=== PATIENT | male | born 1985 | race Caucasian/White ===

== ENCOUNTER 2024-11-10 07:51 | Emergency (ER) | payer MEDICARE, SELFPAY ==
[2024-11-10 07:53] VITALS: BP 145/111
[2024-11-10 09:25] VITALS: BMI 26.6
[2024-11-10 10:01] VITALS: BP 134/83
--- NOTE | 2024-11-10 10:01 | ED.GENMED ---
History of Present Illness
General
Chief Complaint: Skin Problem
Source: patient
Exam Limitations: none
Time Seen by Provider: 11/10/24 09:17
Nursing documentation reviewed up to this point in time: agreed with
History of Present Illness
History of Present Illness:
39-year-old male without significant past medical history presenting to the emergency department today with concerns of swelling to his bilateral wrists. Claims it is similar issues in the past when he had an abscess. He had some Keflex from
previous infection and has been taking that over the last 24 hours. Denies any significant improvement. Denies any fevers or systemic symptoms nausea vomiting. Pain is mild. There has been spontaneous drainage from the small abscess to the left
wrist.
Review of Systems
Review of Systems
Allergies reviewed?: Yes
All Other Systems: ROS reviewed and negative except as documented in HPI and ROS
Phy Exam
Physical Exam
Physical Exam:
GENERAL: Alert , in no apparent distress
EYE: pupils equal and reactive
NECK: Supple, no significant adenopathy.
ENT: o/p clr, mmm.
CARDIAC: Regular rate and rhythm .
LUNGS: Clear breath sounds bilaterally, no acute respiratory distress, no wheezes/rales/rhonchi
ABDOMEN: Soft, without focal tenderness, no r/g, no cvat
NEUROLOGICAL: Alert and oriented, no focal neuro deficits
SKIN: Area of redness swelling warmth tenderness palpation 2.5 cm in diameter with area of central fluctuance and induration of the right wrist on the ulnar aspect, palmar. No significant streaking able to move the wrist normally without
significant discomfort. Additionally 2 cm in diameter redness swelling to the left wrist on the radial palmar aspect central area of fluctuance and induration. Warm and dry, skin intact.
MUSCULOSKELETAL: No edema, well perfused.
PSYCH: Normal and appropriate interaction.
Course
Orders/Labs/Results
Orders:
Orders
11/10/24 10:01
Sulfamethox./Trimethoprim Ds [Bactrim Ds 800 mg/160 mg] 2 tablet PO NOW STA
Vital Signs
Initial and Last Documented VS:
Initial Vital Signs
Temp Pulse Resp BP Pulse Ox
97.4 F 118 18 145/111 97
11/10/24 07:53 11/10/24 07:53 11/10/24 07:53 11/10/24 07:53 11/10/24 07:53
Last Documented Vital Signs
Temp Pulse Resp BP Pulse Ox
97.4 F 83 18 134/83 97
11/10/24 07:53 11/10/24 10:01 11/10/24 07:53 11/10/24 10:01 11/10/24 07:53
Procedures
Incision/Drainage/Joint Aspiration
Right Anterior Ulnar Wrist:
Anethesia: 1% Lidocaine with Epi
Preparation: cleaned with alcohol wipe
Type of procedure: incise and drain
Nature of site: abscess
Description of abscess: less than 3cm
Loculations broken up: Yes
How much fluid was obtained?: large amount
Fluid description: purulent
Treatment: left open for drainage
Left Anterior Ulnar Wrist:
Anethesia: 1% Lidocaine with Epi
Preparation: cleaned with alcohol wipe
Type of procedure: incise and drain
Nature of site: abscess
Description of abscess: less than 3cm
Loculations broken up: Yes
How much fluid was obtained?: small amount
Fluid description: purulent
Treatment: left open for drainage
MDM/Problems Addressed
MDM/Problems Addressed:
39-year-old male presenting to the emergency department today with concerns of an abscess to bilateral wrist. He claims that he is had these in the past. He has been taking Keflex for the past day from leftover antibiotics he had at home. Denies
any fevers or systemic symptoms. No streaking. Abscesses seem to be very localized. These were incised and drained with good success with moderate mount of purulent drainage. Patient tolerated very well. Patient was darted on Bactrim to reduce
risk of recurrence but otherwise stable for outpatient follow-up. Return precautions given.
*Critical Care Note
Total Time (30-74mins, 75-104mins- exclusive of procedures): Not Applicable
ED Attending Note
-
Portions of this chart may have been created with voice recognition software.� Occasional wrong word or��sound alike� substitutions may have occurred due to the inherent limitations of voice recognition software.
Discharge Plan
Departure
Patient Disposition: Home (Routine Discharge)
Date of Disposition: 11/10/24
Time of Disposition: 10:01
Patient with high blood pressure during this ER visit?: No
Condition: Good
Covid-19: Not Applicable
Discharge Problem:
Abscess of arm
Instructions: Skin Abscess
Prescriptions:
New
sulfamethoxazole-trimethoprim [Bactrim DS] 800-160 mg tablet
1 tab PO BID 5 Days Qty: 10 0RF
mupirocin 2 % ointment
1 applic topical BID Qty: 22 0RF
Activity Restrictions/Additional Instructions:
You came to the emergency department today with concerns of an abscess on both of your arms. This was drained and covered. Please take Bactrim twice daily for the next 5 days and also use mupirocin ointment to the local area as well as your nose.
He can also use chlorhexidine body wash. Please follow closely with your primary care doctor in the next week for reassessment. Return to the emergency department any worsening, new or concerning symptoms.
Interventions
Interventions:
*Risk Screen - Suicide Last Done: 11/10/24 07:53
*General Assessment Last Done: 11/10/24 07:53
*Neglect/Abuse Screening Last Done: 11/10/24 07:53
ED- Fall Risk Assessment Last Done: 11/10/24 09:26
*ED COVID-19 Vaccine History Last Done: 11/10/24 09:25
ED-Skin Assessment Last Done: 11/10/24 09:26
Discharge Date and Time
Print Language: SWEDISH
[2024-11-10] MEDS: BACTRIM DS 800 MG/160 MG 2 TABLET PO (10:04)
== END 2024-11-10 10:14 | disposition home or self-care (01) ==
LOC: EMR 07:51
PROVIDERS: EMERGENCY PHYSICIAN Emergency Medicine
DX: L02.414 Cutaneous abscess of left upper limb (principal); L02.413 Cutaneous abscess of right upper limb; M25.432 Effusion, left wrist; M25.431 Effusion, right wrist
CPT/HCPCS: 99283; 10060

== ENCOUNTER 2025-05-17 23:19 | Emergency (ER) | payer MEDICARE, SELFPAY ==
[2025-05-17 23:39] VITALS: BP 133/96
[2025-05-18 02:18] VITALS: BP 132/88; BMI 26.0
--- NOTE | 2025-05-18 02:22 | EDRN ---
Pt noted spider bite on L knee. Pt had MRSA on and is concerned this is the same. Pt noticed bite 4 days ago and adds there is a black dot on it which MRSA in October did not have. Pt does not remember being bit by anything. Pt
adds his R 5th finger is swollen x 2 days. Pt did not seek medical attention until tonight and says the bite area is getting larger. Chills, no fever/cough. No n/v, drainage from knee or finger.
--- NOTE | 2025-05-18 04:04 | ED.GENMED ---
History of Present Illness
General
Chief Complaint: Skin Problem
Source: patient
Exam Limitations: none
Time Seen by Provider: 05/18/25 02:33
Nursing documentation reviewed up to this point in time: agreed with
History of Present Illness
History of Present Illness:
This is a 39-year-old male with a past medical history of MRSA infection who presents to the emergency department today with concerns of a black circular area to his left knee starting around 4 days ago. Patient reports that the area has become
swollen and more red and is painful. He is worried about MRSA infection as he has had a history of this on [place] last year and had to have an abscess drained. 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 He denies any fevers or chills. He denies any nausea or vomiting. He denies
any purulent drainage from the wounds.
Review of Systems
Review of Systems
All Other Systems: ROS reviewed and negative except as documented in HPI and ROS
Phy Exam
Physical Exam
Physical Exam:
General: Patient is well appearing and in no acute distress; non-toxic
Skin: Warm and dry, small abscess with black head with surrounding area of erythema to the left knee
Head: Normocephalic, atraumatic
Eyes: Sclera non-icteric. EOMs intact.
Cardiac: Regular rate and rhythm, no no murmurs
Peripheral Vascular: No lower extremity swelling or edema, 2+ dorsalis pedis pulses bilaterally
Pulm: Normal respiratory effort
Musculoskeletal: Erythema and mild swelling with small white head noted to the posterior surface of the right 5th finger. No tenderness to palpation along the flexor tendon sheath of the right pinky finger, no flexion deformity of the right pinky
finger, no pain with passive extension.
Neuro: CN II-XII intact, no focal neurologic deficits. Sensation intact.
Psychiatric: Appropriate mood and affect.
Course
Orders/Labs/Results
Orders:
Orders
05/18/25 04:03
Ondansetron HCl [Zofran] 4 mg PO NOW STA
05/18/25 04:15
Complete Blood Count/With Diff Urgent
Comprehensive Metabolic Panel Urgent
05/18/25 05:48
Prochlorperazine [Compazine] 10 mg PO NOW STA
05/18/25 06:01
Wound Culture [Wound/Abscess/Other Culture] Urgent
ISAC Source: Abscess
Specimen Description:
Date Specimen was Collected: 05/18/25
Time Specimen was Collected: 05:51
05/18/25 06:17
Sulfamethox./Trimethoprim Ds [Bactrim Ds 800 mg/160 mg] 1 tablet PO NOW STA
05/18/25 06:32
Meclizine [Antivert] 25 mg PO NOW STA
05/18/25 06:36
0.9% Sodium Chloride 1000 ml [Nss] 1,000 ml IV BOLUS
05/18/25 07:24
Meclizine [Antivert] 25 mg PO NOW STA
Abnormal Lab Results
05/18/25
04:15
Absolute Neuts (auto) 6.8 H 10^3/uL
(1.4-6.5)
Absolute Monos (auto) 0.8 H 10^3/uL
(0.1-0.6)
Glucose 109 H mg/dl
(70-99)
05/18/25 04:15
05/18/25 04:15
Vital Signs
Initial and Last Documented VS:
Initial Vital Signs
Temp Pulse Resp BP Pulse Ox
98.2 F 97 20 133/96 99
05/17/25 23:39 05/17/25 23:39 05/17/25 23:39 05/17/25 23:39 05/17/25 23:39
Last Documented Vital Signs
Temp Pulse Resp BP Pulse Ox
98.2 F 87 16 137/84 97
05/18/25 02:18 05/18/25 07:41 05/18/25 07:41 05/18/25 07:41 05/18/25 07:41
Procedures
Incision/Drainage/Joint Aspiration
left anterior knee:
Anethesia: 1% Lidocaine with Epi
Preparation: cleaned with Betadine
Type of procedure: incise and drain
Nature of site: abscess
Description of abscess: less than 3cm
Loculations broken up: No
How much fluid was obtained?: small amount
Fluid description: cloudy
Treatment: left open for drainage
MDM/Problems Addressed
Differential Diagnosis Includes:
Differentials include abscess, cellulitis, sebaceous cyst, contact dermatitis
MDM/Problems Addressed:
Abscess:
This is a 39-year-old male with a past medical history of MRSA infection who presents to the emergency department today with concerns of a black circular area to his left knee starting around 4 days ago. He also notes swelling in his finger. Area
in the knee is consistent with an abscess. The area was incised and drained draining a small amount of purulent fluid. The fluid was cultured. Patient will be started on Bactrim as he has had MRSA infections in the past. In terms of the swelling
in small abscess on his finger, he has no Knievel signs, doubt flexor tenosynovitis, suspect cellulitis versus small abscess, encouraged warm soaks at home and stressed importance of taking antibiotic. Stressed portance of following up with hand
specialist. Patient stable for just
Nausea:
Patient developed nausea when I attempted to do procedure. Patient reports that he needs more time to feel better before going on with the procedure. Gave patient more time and he states that his nausea has worsened and is not ready to do
procedure. Patient was given nausea medication and labs were drawn to assess for other etiologies of the nausea. Patient reports that he feels dizzy as well. I stressed importance of doing the procedure I did proceed with the procedure but he
states that his nausea persists and is not feeling better. Please see update note. Suspect procedural related anxiety versus BPPV versus dehydration. Patient's symptoms have significantly improved. Patient stable for discharge.
*Pulse Oximetry
SaO2: 98
Oxygen Mode of Delivery: Room air
Patient hypoxic: no
*Critical Care Note
Total Time (30-74mins, 75-104mins- exclusive of procedures): Not Applicable
Data Reviewed
Review of Other/Old Records Reveals: Records (Reviewed ER physician documentation from 11/10/2025)
Update Note
Update Note:
4:04 am--Update, attempted to proceed with drainage of assess however patient states that he now feels nauseous and in general 'off'. Suspect related to nerves regarding I+D, however will give dose of zofran and will check labs
5:30 am-- Update, attempted to proceed with procedure however patient reports that he is still feeling nauseous and is wishing to delay the procedure. Explained to patient that the procedure was necessary in order for his symptoms to improve. I
did proceed with procedure which patient tolerated well. Will give additional dose of nausea medication. Patient seen my attending. Patient reports dizziness but when asked to describe dizziness he states that 'it feels more like a nausea'. On
exam patient again, he has no focal neurologic deficits, he has no nystagmus, he has a normal gait. Doubt neurologic etiology.
7:25 am-- Patient reports a significant improvement in his symptoms after meclizine and a dose of IV fluids. He feels he may have been dehydrated. He is requesting another dose of meclizine. Will do PO challenge
7:54 am--patient tolerated p.o. challenge and continues to feel improved. Will plan for discharge.
ED Attending Note
-
Portions of this chart may have been created with voice recognition software.� Occasional wrong word or��sound alike� substitutions may have occurred due to the inherent limitations of voice recognition software.
Discharge Plan
Departure
Patient Disposition: Home (Routine Discharge)
Date of Disposition: 05/18/25
Time of Disposition: 07:53
Patient with high blood pressure during this ER visit?: Yes
Condition: Good
Discharge Problem:
Abscess of knee, left, Abscess of finger
Instructions: Wound Care (DC), BLOOD PRESSURE, Skin Abscess
Prescriptions:
New
meclizine 25 mg tablet
25 mg PO TID PRN (Reason: dizziness) Qty: 10 0RF
sulfamethoxazole-trimethoprim [Bactrim DS] 800-160 mg tablet
1 tab PO BID 7 Days Qty: 14 0RF
No Action
alprazolam [Xanax] 0.5 mg Tablet
0.5 mg PO DAILY
alprazolam [Xanax] 0.5 mg Tablet
0.25 mg PO HS
Referrals:
Thom Wade MD [[facility]] - Call in 1-3 days for appt
UNKNOWN - PT DOES,NOT KNOW [Family Provider]
Activity Restrictions/Additional Instructions:
Sometimes these symptoms can be caused by problems in the inner ear. Please call [phone] to schedule appointment for vestibular rehabilitation. Received IV fluids. Meclizine have sent to your pharmacy. You take 1 tablet every 6 hours as
needed.

In regards to the small abscess on your finger, please utilize warm soaks and warm compresses. It is important that you follow-up with a hand specialist to ensure that this is healing appropriately. Please call the attached number for Dr. Wade's
office to schedule appointment for follow up.

Bactrim has been sent to your pharmacy. Please take 1 tablet twice daily for 7 days.
PLEASE RETURN EMERGENCY DEPARTMENT SHOULD YOU DEVELOP FEVERS OR CHILLS, INABILITY MOVE YOUR FINGER, INCREASING PAIN OR SWELLING, INTRACTABLE NAUSEA OR VOMITING, GAIT ABNORMALITIES, BALANCE ISSUES, TROUBLE SWALLOWING, DOUBLE VISION, LOSS
CONSCIOUSNESS, CHEST PAIN, SHORTNESS OF BREATH, OR ANY OTHER SIGNS OR SYMPTOMS WORRISOME TO YOU.
Interventions
Interventions:
*Risk Screen - Suicide Last Done: 05/18/25 02:18
*General Assessment Last Done: 05/17/25 23:39
*Neglect/Abuse Screening Last Done: 05/18/25 02:18
*ED- Fall Risk Assessment Last Done: 05/18/25 02:18
ED-Skin Assessment Last Done: 05/18/25 07:41
Discharge Date and Time
Print Language: HEBREW
[2025-05-18] MEDS: ZOFRAN 4 MG PO (04:14)
[2025-05-18 04:20] VITALS: BP 131/74
[2025-05-18 04:25] LABS: Hematocrit 42.5 % (39.0-52.0); Hemoglobin 14.6 g/dL (13.0-18.0); Mean Corp Hgb Conc. 34.4 g/dL (33.0-37.0); Mean Corpuscular Volume 84.7 fL (80.0-94.0); Nucleated Red Blood Cells % 0 % (-); Platelet Count 217 10^3/uL (130-400); Red Cell Dist. Width 12.2 % (11.5-14.5)
[2025-05-18 04:52] LABS: ALT (SGPT) 14 U/L (0-50); AST (SGOT) 17 U/L (17-59); Albumin 4.1 g/dl (3.5-5.0); Alkaline Phosphatase 66 U/L (38-126); Blood Urea Nitrogen 15 mg/dl (9-20); Calcium 9.1 mg/dl (8.4-10.2); Carbon Dioxide 25 mmol/L (22-30); Chloride 107 mmol/L (98-107); Estimated Creatinine Clearance 118 ml/min; Glucose 109 mg/dl (70-99); Potassium 4.1 mmol/L (3.5-5.1); Sodium 138 mmol/L (135-145); Total Protein 6.9 g/dl (6.3-8.2); eGFR > 60.00
[2025-05-18] MEDS: COMPAZINE 10 MG PO (06:01)
[2025-05-18 06:05] VITALS: BP 129/74
[2025-05-18] MEDS: ANTIVERT 25 MG PO ×2 (06:35→07:40)
[2025-05-18] MEDS: BACTRIM DS 800 MG/160 MG 1 TABLET PO (06:35)
[2025-05-18] MEDS: NSS 1000 IV (07:04)
[2025-05-18 07:41] VITALS: BP 137/84
== END 2025-05-18 08:35 | disposition home or self-care (01) ==
LOC: EMR 23:19
PROVIDERS: Physician Assistant; EMERGENCY PHYSICIAN Student in an Organized Health Care Education/Training Program
DX: L02.416 Cutaneous abscess of left lower limb (principal); L02.511 Cutaneous abscess of right hand; R11.0 Nausea; R42 Dizziness and giddiness; X58.XXXA Exposure to other specified factors, initial encounter; Y93.89 Activity, other specified; R03.0 Elevated blood-pressure reading, without diagnosis of hypertension; Z86.14 Personal history of Methicillin resistant Staphylococcus aureus infection
CPT/HCPCS: 99284; 96360; 10060; 80053; 85025; 87070; 87205

== ENCOUNTER 2025-06-05 03:09 | Emergency (ER) | payer MEDICARE, SELFPAY ==
[2025-06-05 03:11] VITALS: BP 141/99
[2025-06-05 03:24] VITALS: BMI 25.3
[2025-06-05 04:29] LABS: Hematocrit 38.9 % (39.0-52.0); Hemoglobin 13.3 g/dL (13.0-18.0); Mean Corp Hgb Conc. 34.2 g/dL (33.0-37.0); Mean Corpuscular Volume 84.4 fL (80.0-94.0); Nucleated Red Blood Cells % 0 % (-); Platelet Count 232 10^3/uL (130-400); Red Cell Dist. Width 12.3 % (11.5-14.5)
--- NOTE | 2025-06-05 04:30 | ED.GENMED ---
History of Present Illness
General
Chief Complaint: Skin Problem
Source: patient and previous hospital records (Previous ED visit May 18. Presented with abscess left anterior knee requiring incision and drainage.)
Exam Limitations: none
Time Seen by Provider: 06/05/25 03:43
Nursing documentation reviewed up to this point in time: agreed with
History of Present Illness
History of Present Illness:
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 Abscess was incised and drained and he was placed on a 7-day
course of Bactrim DS which he admits to neglecting to take on a regular basis. Abscess seemed to improve but he admits that it did not completely resolve.
He works as a zabala, is on his hands and knees often and since last week he has had increased pain and swelling to anterior left knee abrasion/abscess sites. He resumed Bactrim sporadically over the past 5 days and took his last dose yesterday.
He stuck a pin in the abscessed area yesterday and admits to moderate amount of drainage and overall appeared to be improving until today when he noticed significant redness to his entire left lower leg which is a new finding. He has never had
similar redness to his leg before. He denies fever nor chills. He denies weakness nor numbness.
Past History
Past History
ED Past Medical History: Other (MRSA related skin abscesses)
ED Past Surgical History: None
Social History
Tobacco: Non-smoker
Alcohol: Occasional
Personal: Single
Employment: Employed (Self-employed)
Family History
Family History: Other (Noncontributory)
Phy Exam
Physical Exam
Physical Exam:
GENERAL: 39-year-old gentleman appears his stated age, awake and alert, pleasant, appears in no acute distress. Afebrile.
EYE: anicteric
NECK: Supple, nontender, no meningismus, no significant adenopathy.
ENT: oral mucosa is moist. No rhinorrhea.
CARDIAC: Regular rate and rhythm. no murmur.
LUNGS: Clear breath sounds bilaterally, no acute respiratory distress, no wheezes/rales/rhonchi
ABDOMEN: Soft, nondistended, without focal tenderness
NEUROLOGICAL: Alert and oriented x3, no focal neuro deficits. Gait is steady.
SKIN: Warm and dry, normal color, few scattered superficial abrasions to bilateral hands. Left lower leg with moderate global erythema primarily anterior, lateral and medial aspect of the lower leg. There is a subacute crusted scab anterior distal
left knee overlying the tibial plateau. There is no fluctuance. Just proximal to this overlying the patella is a 2 cm mildly pale area of thickened/callused skin without abscess formation. There is no lymphangitis. The foot is not involved.
There is no joint effusion.
MUSCULOSKELETAL: Very mild edema left lower leg with global erythema. Mild tenderness to the left lower leg. Peripheral pulses are full and equal b/l.
PSYCH: Normal and appropriate interaction.
Course
Orders/Labs/Results
Orders:
Orders
06/05/25 03:54
US Periph Venous LOWER Ext LT Urgent
Comment:
Reason For Exam: swelling LLE
06/05/25 04:13
Complete Blood Count/With Diff Urgent
Comprehensive Metabolic Panel Urgent
Lactic Acid Urgent
06/05/25 04:22
Vancomycin [Vancocin] 2,000 mg 0.9% Sodium Chloride 500 ml [Nss] 500 ml IV NOW
Abnormal Lab Results
06/05/25
04:13
RBC 4.61 L 10^6/uL
(4.70-6.10)
Hct 38.9 L %
(39.0-52.0)
Chloride 109 H mmol/L
(98-107)
Lactic Acid 0.5 L mmol/L
(0.7-2.0)
06/05/25 04:13
06/05/25 04:13
Vital Signs
Initial and Last Documented VS:
Initial Vital Signs
Temp Pulse BP Pulse Ox
98.1 F 111 141/99 98
06/05/25 03:11 06/05/25 03:11 06/05/25 03:11 06/05/25 03:11
Last Documented Vital Signs
Temp Pulse Resp BP Pulse Ox
98.1 F 111 14 141/99 98
06/05/25 03:11 06/05/25 03:11 06/05/25 03:19 06/05/25 03:11 06/05/25 04:42
MDM/Problems Addressed
Differential Diagnosis Includes:
Concern for subacute/recurrent skin abscesses, progressive/worsening with surrounding cellulitis of left lower extremity.
Mild global left lower leg swelling, concern for potential DVT.
There are 2 skin abscesses anterior leg both of which are draining, not requiring incision and drainage.
Will check labs including lactic acid. Will check ultrasound left lower extremity.
Will plan for IV dose of vancomycin for MRSA coverage.
Chronic conditions affecting care: Other (MRSA skin abscesses.)
*Radiology
Radiology exam reviewed: radiology read reviewed (Left lower extremity ultrasound negative for DVT.)
*Pulse Oximetry
SaO2: 98
Oxygen Mode of Delivery: Room air
Patient hypoxic: no
*Critical Care Note
Total Time (30-74mins, 75-104mins- exclusive of procedures): Not Applicable
Update Note
Update Note:
06:00
Patient resting comfortably. Sleeping when undisturbed.
Remains afebrile.
Labs are unremarkable, normal white blood cell count. Normal lactic acid at 0.5.
Ultrasound negative for DVT.
Will plan for discharge to home with prescription for 1 week course of Bactrim and Keflex.
Encouraged compliance with medication for the full week.
Return precautions discussed.
ED Attending Note
-
Portions of this chart may have been created with voice recognition software.� Occasional wrong word or��sound alike� substitutions may have occurred due to the inherent limitations of voice recognition software.
Discharge Plan
Departure
Patient Disposition: Home (Routine Discharge)
Date of Disposition: 06/05/25
Time of Disposition: 06:00
Patient with high blood pressure during this ER visit?: No
Condition: Good
Discharge Problem:
Cellulitis of left leg without foot
Instructions: Cellulitis (Skin Infection), Adult (DC)
Prescriptions:
New
sulfamethoxazole-trimethoprim [Bactrim DS] 800-160 mg tablet
1 tab PO BID Qty: 14 0RF
cephalexin 500 mg capsule
1,000 mg PO BID 7 Days Qty: 28 0RF
No Action
alprazolam [Xanax] 0.5 mg Tablet
0.5 mg PO DAILY
alprazolam [Xanax] 0.5 mg Tablet
0.25 mg PO HS
sulfamethoxazole-trimethoprim [Bactrim DS] 800-160 mg tablet
1 tab PO BID 7 Days Qty: 14 0RF
Rx Instructions:
took last dose 06/04
Referrals:
UNKNOWN - PT DOES,NOT KNOW [Family Provider]
Interventions
Interventions:
*Risk Screen - Suicide Last Done: 06/05/25 03:15
*General Assessment Last Done: 06/05/25 03:15
*Neglect/Abuse Screening Last Done: 06/05/25 03:15
*ED- Fall Risk Assessment Last Done: 06/05/25 03:29
*ED COVID-19 Vaccine History Last Done: 06/05/25 03:29
ED-Skin Assessment Last Done: 06/05/25 03:29
Discharge Date and Time
Print Language: MARSHALLESE
[2025-06-05 04:40] LABS: ALT (SGPT) 20 U/L (0-50); AST (SGOT) 34 U/L (17-59); Albumin 4.1 g/dl (3.5-5.0); Alkaline Phosphatase 72 U/L (38-126); Blood Urea Nitrogen 13 mg/dl (9-20); Calcium 9.0 mg/dl (8.4-10.2); Carbon Dioxide 25 mmol/L (22-30); Chloride 109 mmol/L (98-107); Estimated Creatinine Clearance 105 ml/min; Glucose 99 mg/dl (70-99); Potassium 4.2 mmol/L (3.5-5.1); Sodium 139 mmol/L (135-145); Total Protein 7.1 g/dl (6.3-8.2); eGFR > 60.00
[2025-06-05] MEDS: VANCOCIN 540 MG IV (05:15)
[2025-06-05 05:57] VITALS: BP 127/72
[2025-06-05 07:56] VITALS: BP 122/67
== END 2025-06-05 07:57 | disposition home or self-care (01) ==
LOC: EMR 03:09
PROVIDERS: EMERGENCY PHYSICIAN Emergency Medicine
DX: L03.116 Cellulitis of left lower limb (principal); R22.42 Localized swelling, mass and lump, left lower limb; Z86.14 Personal history of Methicillin resistant Staphylococcus aureus infection
CPT/HCPCS: 99284; 96365; 96366; 80053; 83605; 85025; 93971

== ENCOUNTER 2025-08-07 08:29 | Emergency (ER) | payer MEDICARE, SELFPAY ==
[2025-08-07 08:31] VITALS: BP 130/83
--- NOTE | 2025-08-07 09:16 | ED.GENMED ---
History of Present Illness
General
Chief Complaint: Musculo-Skeletal Complaint
Time Seen by Provider: 08/07/25 08:35
History of Present Illness
History of Present Illness:
39-year-old male presents to the emergency department for evaluation of a left wrist injury sustained after falling while skateboarding yesterday. Complaining of significant pain and swelling to the wrist that was not present yesterday. No distal
paresthesias. Denies any elbow or shoulder tenderness or pain
Past History
Past History
ED Past Medical History: Other (MRSA related skin abscesses)
ED Past Surgical History: None
Social History
Tobacco: Non-smoker
Alcohol: Occasional
Personal: Single
Employment: Employed (Self-employed)
Family History
Family History: Other (Noncontributory)
Review of Systems
Review of Systems
Allergies reviewed?: Yes
All Other Systems: ROS reviewed and negative except as documented in HPI and ROS
Phy Exam
Physical Exam
Physical Exam:
GEN: Well appearing, NAD, WDWN
HEENT: Oral mucosa moist, no scleral icterus
Cardiac: Regular rate
Lung: No respiratory distress, no tachypnea
MSK: Moderate diffuse swelling of the left wrist extending to the hand dorsally with mild ecchymosis over the mid hand, sensation distal to the digits is intact, strong radial pulse, no tenderness to the left elbow or shoulder
Skin: Good color, no pallor or jaundice, no rashes
Neuro: AO x3, moves all extremities freely
Psych: Calm, cooperative
Course
Orders/Labs/Results
Orders:
Orders
08/07/25 08:37
CR Wrist - Left Min 3 Views Urgent
Comment:
Reason For Exam: fall
Vital Signs
Initial and Last Documented VS:
Initial Vital Signs
Temp Pulse Resp BP Pulse Ox
97.8 F 107 16 130/83 99
08/07/25 08:31 08/07/25 08:31 08/07/25 08:31 08/07/25 08:31 08/07/25 08:31
Last Documented Vital Signs
Temp Pulse Resp BP Pulse Ox
97.8 F 107 16 130/83 99
08/07/25 08:31 08/07/25 08:31 08/07/25 08:31 08/07/25 08:31 08/07/25 09:16
Procedures
Splinting/Sling Placement
L Wrist:
Procedure completed by: Cayetano Lora PA-C
Pre-splint extermity exam: neurovascular intact
Type of splint: short arm
Splint material: fiberglass
Splint checked by provider?: Yes
Normal distal neurovascular exam?: Yes
MDM/Problems Addressed
MDM/Problems Addressed:
X-ray of the left wrist independently interpreted by me reveal linear fractures of the distal radius with intra-articular component as well as a small ulnar styloid chip fracture. Placed in a volar short arm wrist splint and referred to orthopedics
as an outpatient for follow-up care
*Pulse Oximetry
SaO2: 99
Oxygen Mode of Delivery: Room air
Patient hypoxic: no
*Critical Care Note
Total Time (30-74mins, 75-104mins- exclusive of procedures): Not Applicable
ED Attending Note
-
Portions of this chart may have been created with voice recognition software.� Occasional wrong word or��sound alike� substitutions may have occurred due to the inherent limitations of voice recognition software.
Discharge Plan
Departure
Patient Disposition: Home (Routine Discharge)
Date of Disposition: 08/07/25
Time of Disposition: 09:16
Patient with high blood pressure during this ER visit?: No
Discharge Problem:
Distal radius fracture, right
Instructions: Wrist Fracture (DC)
Prescriptions:
No Action
alprazolam [Xanax] 0.5 mg Tablet
0.5 mg PO DAILY
alprazolam [Xanax] 0.5 mg Tablet
0.25 mg PO HS
sulfamethoxazole-trimethoprim [Bactrim DS] 800-160 mg tablet
1 tab PO BID 7 Days Qty: 14 0RF
Rx Instructions:
took last dose 06/04
sulfamethoxazole-trimethoprim [Bactrim DS] 800-160 mg tablet
1 tab PO BID Qty: 14 0RF
cephalexin 500 mg capsule
1,000 mg PO BID 7 Days Qty: 28 0RF
Referrals:
Jay Eid MD [Active, Orthopedics]
Interventions
Interventions:
*Risk Screen - Suicide Last Done: 08/07/25 08:31
*General Assessment Last Done: 08/07/25 09:06
*Neglect/Abuse Screening Last Done: 08/07/25 08:31
*ED- Fall Risk Assessment Last Done: 08/07/25 09:06
*ED COVID-19 Vaccine History Last Done: 08/07/25 09:06
*Nursing Disposition Last Done: 08/07/25 09:20
ED-Musculoskeletal Assessment Last Done: 08/07/25 09:06
Discharge Date and Time
Discharge Date/Time: 08/07/25 09:20
Print Language: [place]
== END 2025-08-07 09:20 | disposition home or self-care (01) ==
LOC: EMR 08:29
PROVIDERS: EMERGENCY PHYSICIAN Student in an Organized Health Care Education/Training Program
DX: S52.572A Other intraarticular fracture of lower end of left radius, initial encounter for closed fracture (principal); S52.615A Nondisplaced fracture of left ulna styloid process, initial encounter for closed fracture; V00.131A Fall from skateboard, initial encounter; Y93.51 Activity, roller skating (inline) and skateboarding
CPT/HCPCS: 29125; 99283; 73110

== ENCOUNTER 2025-08-26 04:25 | Emergency (ER) | payer OTHER, SELFPAY ==
[2025-08-26 04:33] VITALS: BP 143/99
--- NOTE | 2025-08-26 05:16 | ED.GENMED ---
History of Present Illness
General
Chief Complaint: Skin Problem
Source: patient
Exam Limitations: none
Time Seen by Provider: 08/26/25 04:49
Nursing documentation reviewed up to this point in time: agreed with
History of Present Illness
History of Present Illness:
39-year-old male past medical history of MRSA infection presenting to the emergency department today with concerns of swelling to his left upper lip over the past 2 days or so. Has a history of MRSA denies any trouble swallowing or breathing no
fevers.
Past History
Past History
ED Past Medical History: Other (MRSA related skin abscesses)
ED Past Surgical History: None
Social History
Tobacco: Non-smoker
Alcohol: Occasional
Personal: Single
Employment: Employed (Self-employed)
Family History
Family History: Other (Noncontributory)
Review of Systems
Review of Systems
Allergies reviewed?: Yes
All Other Systems: ROS reviewed and negative except as documented in HPI and ROS
Phy Exam
Physical Exam
Physical Exam:
GENERAL: Alert , in no apparent distress
EYE: pupils equal and reactive
NECK: Supple, no significant adenopathy.
ENT: Swelling inflammation to the area just below the left nare no spontaneous drainage o/p clr, mmm.
CARDIAC: Regular rate and rhythm .
LUNGS: Clear breath sounds bilaterally, no acute respiratory distress, no wheezes/rales/rhonchi
ABDOMEN: Soft, without focal tenderness, no r/g, no cvat
NEUROLOGICAL: Alert and oriented, no focal neuro deficits
SKIN: Warm and dry, skin intact.
MUSCULOSKELETAL: No edema, well perfused.
PSYCH: Normal and appropriate interaction.
Sepsis
Sepsis Screening
Sepsis Assessment: Sepsis Ruled Out
Sepsis Screen
Sepsis Screen: Sepsis Ruled Out
Date: 08/26/25
Time: 05:21
Course
Vital Signs
Initial and Last Documented VS:
Initial Vital Signs
Temp Pulse Resp BP Pulse Ox
97.3 F 110 18 143/99 98
08/26/25 04:33 08/26/25 04:33 08/26/25 04:33 08/26/25 04:33 08/26/25 04:33
Last Documented Vital Signs
Temp Pulse Resp BP Pulse Ox
97.3 F 110 18 143/99 98
08/26/25 04:33 08/26/25 04:33 08/26/25 04:33 08/26/25 04:33 08/26/25 04:33
Procedures
Incision/Drainage/Joint Aspiration
Inferior to the left nare:
Anethesia: 1% Lidocaine with Epi
Preparation: cleaned with alcohol wipe
Type of procedure: drain and aspiration
Nature of site: abscess
Description of abscess: less than 3cm
Loculations broken up: Yes
How much fluid was obtained?: small amount
Fluid description: purulent
Treatment: left open for drainage
MDM/Problems Addressed
MDM/Problems Addressed:
39-year-old male presenting to the emergency department today with concerns of swelling below the left nostril over the past day. This appears to consistent with an abscess. This was drained with a needle aspiration of an 18-gauge needle.
Moderate amount of purulent drainage. Otherwise able for discharge was written for antibiotic. Return precautions given.
*Pulse Oximetry
SaO2: 98
Oxygen Mode of Delivery: Room air
Patient hypoxic: no (98)
*Critical Care Note
Total Time (30-74mins, 75-104mins- exclusive of procedures): Not Applicable
ED Attending Note
-
Portions of this chart may have been created with voice recognition software.� Occasional wrong word or��sound alike� substitutions may have occurred due to the inherent limitations of voice recognition software.
Discharge Plan
Departure
Patient Disposition: Home (Routine Discharge)
Date of Disposition: 08/26/25
Time of Disposition: 05:19
Patient with high blood pressure during this ER visit?: No
Condition: Good
Covid-19: Not Applicable
Discharge Problem:
Abscess of nose
Instructions: Skin Abscess
Prescriptions:
New
sulfamethoxazole-trimethoprim [Bactrim DS] 800-160 mg tablet
1 tab PO BID 5 Days Qty: 10 0RF
mupirocin [Centany] 2 % ointment
1 applic topical BID Qty: 22 0RF
No Action
alprazolam [Xanax] 0.5 mg Tablet
0.5 mg PO DAILY
alprazolam [Xanax] 0.5 mg Tablet
0.25 mg PO HS
sulfamethoxazole-trimethoprim [Bactrim DS] 800-160 mg tablet
1 tab PO BID 7 Days Qty: 14 0RF
Rx Instructions:
took last dose 06/04
sulfamethoxazole-trimethoprim [Bactrim DS] 800-160 mg tablet
1 tab PO BID Qty: 14 0RF
cephalexin 500 mg capsule
1,000 mg PO BID 7 Days Qty: 28 0RF
Activity Restrictions/Additional Instructions:
You came to the emergency department today with concerns of an abscess. This was drained here. Please use the prescribed antibiotic ointment and antibiotic as well as Hibiclens. Return for any worsening, new or concerning symptoms.
Discharge Date and Time
Print Language: CHINESE
[2025-08-26] MEDS: BACTRIM DS 800 MG/160 MG 1 TABLET PO (05:41)
== END 2025-08-26 06:10 | disposition home or self-care (01) ==
LOC: EMR 04:25
PROVIDERS: EMERGENCY PHYSICIAN Student in an Organized Health Care Education/Training Program
DX: J34.0 Abscess, furuncle and carbuncle of nose (principal); Z86.14 Personal history of Methicillin resistant Staphylococcus aureus infection
CPT/HCPCS: 10060; 99283

== ENCOUNTER 2025-10-28 20:26 | Emergency (ER) | payer OTHER, SELFPAY ==
[2025-10-28 20:31] VITALS: BP 116/75
[2025-10-28 20:32] VITALS: BP 116/75
[2025-10-28 20:39] VITALS: BMI 25.8
[2025-10-28 21:00] VITALS: BP 121/85
[2025-10-28 21:27] LABS: Hematocrit 42.2 % (39.0-52.0); Hemoglobin 14.4 g/dL (13.0-18.0); Mean Corp Hgb Conc. 34.1 g/dL (33.0-37.0); Mean Corpuscular Volume 84.4 fL (80.0-94.0); Nucleated Red Blood Cells % 0 % (-); Platelet Count 223 10^3/uL (130-400); Red Cell Dist. Width 12.3 % (11.5-14.5)
--- NOTE | 2025-10-28 21:36 | ED.GENMED ---
History of Present Illness
General
Chief Complaint: Chest Pain
Time Seen by Provider: 10/28/25 21:35
History of Present Illness
History of Present Illness:
FOCUSED PAST MEDICAL HISTORY
- ADHD, anxiety, has had abscess
REVIEW OF OLD RECORDS
- Patient was seen here and had I&D for abscess at the left nostril 08/26/2025
Note:
CHIEF COMPLAINT(S)
Chest squeezing sensation.
HISTORY OF PRESENT ILLNESS
The patient is a 39-year-old male who presented with complaints of a squeezing sensation in the chest that started three hours prior to evaluation. The onset of chest discomfort coincided with the news of legal issues indicating potential
incarceration, suggesting a possible stress-related trigger. The patient described the sensation as a 'squeezing' feeling. Physical assessment revealed normal dorsalis pedis and posterior tibial pulses, indicating adequate perfusion to the
extremities. When the chest was palpated, there was mild pain, but it did not significantly worsen. The patient denied any illicit drug use. The emergency physician administered toradol, an anti-inflammatory medication, to alleviate chest
discomfort. Cardiac blood work was pending at the time of evaluation, with troponin testing ordered to monitor trends due to the timing of symptom presentation.
PHYSICAL EXAM
General: Alert, no acute distress.
Skin: Warm, dry.
Head: Normocephalic, atraumatic.
Neck: Supple, trachea midline.
Eyes, Ears, Nose, Mouth, and Throat: Oral mucosa moist.
Cardiovascular: Normal peripheral perfusion, No edema, strong dorsalis pedis and posterior tibial pulses.
Respiratory: Respirations are non-labored.
Gastrointestinal: Abdomen nondistended.
Back: Normal range of motion, Normal alignment.
Musculoskeletal: Normal ROM, normal strength.
Neurological: Alert and oriented to person, place, time, and situation, No focal neurological deficit observed.
Psychiatric: Cooperative, appropriate mood & affect.
PLAN
1. Administered Toradol for chest pain relief.
2. Monitor cardiac markers with troponin tests to observe trends concerning symptom onset.
DIFFERENTIAL DIAGNOSIS
The Differential Diagnosis includes, in no particular order and is not limited to:
1. Acute Coronary Syndrome
2. Anxiety-Induced Chest Pain
3. Costochondritis
4. Pulmonary Embolism
5. Gastroesophageal Reflux Disease
6. Musculoskeletal Chest Pain
7. Aortic Dissection
8. Pleuritis
9. Panic Attack
10. Pericarditis
Disposition:
SUMMARY OF ENCOUNTER
The patient, a 39-year-old male, presented to the emergency department with complaints of a squeezing sensation in the chest that began three hours prior to his visit, coinciding with receiving distressing news of potential incarceration. The chest
discomfort seemed related to stress, and the physical exam revealed mild pain upon chest palpation. Given the acute nature of the complaint, cardiac enzymes, including troponin, were ordered to evaluate for any acute coronary syndrome. The troponin
results were unremarkable, suggesting no significant cardiac event. The patients symptoms were managed with toradol (ketorolac), an anti-inflammatory medication, likely to address possible stress-induced or musculoskeletal-related chest pain.
DISPOSITION
Discharge
ASSESSMENT
The chest squeezing sensation is likely stress-induced, related to the patients recent legal issues and announcement of potential incarceration.
EMERGENCY TREATMENTS ADMINISTERED
Toradol (ketorolac) was administered to the patient for chest pain relief.
INDEPENDENT REVIEW OF LABS AND INTERPRETATION OF TESTS
My independent review of the cardiac markers, specifically the troponin, is unremarkable, indicating no acute cardiac event.
MEDICATION RECONCILIATION
Toradol (ketorolac) administered for chest discomfort relief.
MEDICAL DECISION MAKING
- Number and Complexity of Problems Addressed: Chronic conditions affecting care include potential stress-related chest pain and legal-related stress. Differential diagnosis considered: Acute Coronary Syndrome, Anxiety-Induced Chest Pain,
Costochondritis, Pulmonary Embolism, Gastroesophageal Reflux Disease, Musculoskeletal Chest Pain, Aortic Dissection, Pleuritis, Panic Attack, Pericarditis.
- Data:
- Category 1: Troponin lab test reviewed, which was unremarkable.
- Category 3: Discussion with [place] police regarding the patients legal circumstances and the trigger for the chest pain.
- Risk: Prescription medication management with Toradol (ketorolac) for pain relief is confirmed. Consideration of Admission/Observation was considered due to the nature of the symptoms; however, the unremarkable workup and symptom relief supported
a safe discharge with outpatient follow-up.
DIAGNOSIS
- Chest pain
EKG
- Sinus 87, normal axis, nonspecific ST abnormality
LABS
- Troponin x 2 negative
UPDATE
- Chest pain did not start until he was told he was going to present
- I spoke to park police outside of the patient's room
- EKG and 2 troponins unremarkable
- He also reported some leg discomfort but has very strong DP and PT pulses with no swelling and no clinical evidence for DVT
- He was given Toradol earlier and appears very comfortable on reassessment prior to discharge at 11 PM
Past History
Past History
ED Past Medical History: Other (MRSA related skin abscesses)
ED Past Surgical History: None
Social History
Tobacco: Non-smoker
Alcohol: Occasional
Personal: Single
Employment: Employed (Self-employed)
Family History
Family History: Other (Noncontributory)
Phy Exam
Physical Exam
Physical Exam:
See HPI
Scores
Heart Score for Chest Pain Patients
STEMI patient?: Not applicable
Course
Orders/Labs/Results
Orders:
Orders
10/28/25 20:43
Electrocardiogram (*1) Urgent
Reason for Study: Chest Pain
EKG- Treatment ONCE
10/28/25 21:17
Complete Blood Count/With Diff Urgent
Comprehensive Metabolic Panel Urgent
Troponin I Urgent
10/28/25 21:54
Ketorolac [Toradol] 15 mg IV NOW STA
10/28/25 22:00
Troponin I Urgent
Abnormal Lab Results
10/28/25
21:17
WBC 11.2 H 10^3/uL
(4.8-10.8)
Absolute Neuts (auto) 9.1 H 10^3/uL
(1.4-6.5)
Neutrophils % 81.1 H %
(42.2-75.2)
Lymphocytes % 13.5 L %
(20.5-51.1)
Glucose 104 H mg/dl
(70-99)
10/28/25 21:17
10/28/25 21:17
Vital Signs
Initial and Last Documented VS:
Initial Vital Signs
Temp Pulse Resp BP Pulse Ox
36.6 C 98 22 116/75 99
10/28/25 20:31 10/28/25 20:31 10/28/25 20:31 10/28/25 20:31 10/28/25 20:31
Last Documented Vital Signs
Temp Pulse Resp BP Pulse Ox
36.6 C 90 22 122/82 99
10/28/25 20:31 10/28/25 23:08 10/28/25 22:45 10/28/25 22:00 10/28/25 23:08
*Pulse Oximetry
SaO2: 99
Oxygen Mode of Delivery: Room air
Patient hypoxic: no
*Critical Care Note
Total Time (30-74mins, 75-104mins- exclusive of procedures): Not Applicable
ED Attending Note
-
Portions of this chart may have been created with voice recognition software.� Occasional wrong word or��sound alike� substitutions may have occurred due to the inherent limitations of voice recognition software.
Discharge Plan
Departure
Patient Disposition: Residential
Date of Disposition: 10/28/25
Time of Disposition: 22:50
Patient with high blood pressure during this ER visit?: Yes
Discharge Problem:
Chest pain
Instructions: Chest Pain PCP Follow Up, BLOOD PRESSURE
Prescriptions:
No Action
alprazolam [Xanax] 0.5 mg Tablet
0.5 mg PO DAILY
alprazolam [Xanax] 0.5 mg Tablet
0.25 mg PO HS
sulfamethoxazole-trimethoprim [Bactrim DS] 800-160 mg tablet
1 tab PO BID 7 Days Qty: 14 0RF
Rx Instructions:
took last dose 06/04
sulfamethoxazole-trimethoprim [Bactrim DS] 800-160 mg tablet
1 tab PO BID Qty: 14 0RF
cephalexin 500 mg capsule
1,000 mg PO BID 7 Days Qty: 28 0RF
sulfamethoxazole-trimethoprim [Bactrim DS] 800-160 mg tablet
1 tab PO BID 5 Days Qty: 10 0RF
mupirocin [Centany] 2 % ointment
1 applic topical BID Qty: 22 0RF
Referrals:
NONE,* [Family Provider, Internal Medicine]
Activity Restrictions/Additional Instructions:
2 cardiac blood tests show no sign of heart attack. EKG shows no sign of heart attack. Return if worse or other concerns. Was given a dose of Toradol IV.
PATIENT IS MEDICALLY CLEARED FOR POLICE CUSTODY / INCARCERATION.
Interventions
Interventions:
*Risk Screen - Suicide Last Done: 10/28/25 20:31
*General Assessment Last Done: 10/28/25 20:31
*Neglect/Abuse Screening Last Done: 10/28/25 20:31
*ED COVID-19 Vaccine History Last Done: 10/28/25 20:39
*ED Influenza Vaccine History Last Done: 10/28/25 20:39
[facility] Risk Assessment Tool Last Done: 10/28/25 20:39
*Nursing Disposition Last Done: 10/28/25 23:08
ED- Cardiac Assessment Last Done: 10/28/25 20:39
Discharge Date and Time
Discharge Date/Time: 10/28/25 23:13
Print Language: ARMENIAN
[2025-10-28 21:49] LABS: ALT (SGPT) 24 U/L (0-50); AST (SGOT) 27 U/L (17-59); Albumin 4.2 g/dl (3.5-5.0); Alkaline Phosphatase 81 U/L (38-126); Blood Urea Nitrogen 18 mg/dl (9-20); Calcium 8.9 mg/dl (8.4-10.2); Carbon Dioxide 25 mmol/L (22-30); Chloride 105 mmol/L (98-107); Estimated Creatinine Clearance 114 ml/min; Glucose 104 mg/dl (70-99); Potassium 4.1 mmol/L (3.5-5.1); Sodium 136 mmol/L (135-145); Total Protein 7.3 g/dl (6.3-8.2); eGFR > 60.00
[2025-10-28 22:00] VITALS: BP 122/82
[2025-10-28 22:00] LABS: Troponin I < 0.012 ng/ml
[2025-10-28] MEDS: TORADOL 15 MG IV (22:02)
[2025-10-28 22:34] LABS: Troponin I < 0.012 ng/ml
== END 2025-10-28 23:13 ==
LOC: EMR 20:26
PROVIDERS: EMERGENCY PHYSICIAN Emergency Medicine
DX: R07.89 Other chest pain (principal); F41.9 Anxiety disorder, unspecified; F90.9 Attention-deficit hyperactivity disorder, unspecified type; Z65.3 Problems related to other legal circumstances; Z86.14 Personal history of Methicillin resistant Staphylococcus aureus infection
CPT/HCPCS: 99284; 96374; 80053; 84484; 85025; 93005